=== PATIENT | female | born 1940 | race Two or more races ===

== ENCOUNTER 2021-01-05 15:40 | Emergency (ER) | payer OTHER ==
[~2021-01-05] VITALS: Ht 175.3 cm; Wt 81.6 kg
[2021-01-05] MEDS ORDERED: TOPROL XL25 M1 PO (15:58)
[2021-01-05] MEDS ORDERED: ASA81 MG PO (15:58)
== END 2021-01-06 02:39 | disposition designated cancer center or children's hospital (05) ==
LOC: ER 15:40
DX: I63.89 Other cerebral infarction (principal); M62.81 Muscle weakness (generalized); I10 Essential (primary) hypertension; Z03.818 Encounter for observation for suspected exposure to other biological agents ruled out